=== PATIENT | female | born 1995 | race Hispanic/Latino ===

== ENCOUNTER 2019-12-26 16:47 | Emergency (ER) | payer BC, OTHER ==
[2019-12-26 17:20] LABS: Urine Blood NEGATIVE (NEG); Urine Glucose NEGATIVE (NEG); Urine Protein NEGATIVE (NEG); Urine Specific Gravity 1.025 (1.005-1.030)
--- NOTE | 2019-12-26 18:34 | RAD REPORT ---
EXAM DESCRIPTION: US - Transvaginal OB - 12/26/2019 6:22 pm CLINICAL HISTORY: ABD PAIN, , fall COMPARISON: No comparisons FINDINGS: No myometrial mass identified. A normal shaped oval gestational sac is seen in the fundal portion of the endometrial cavity. No yolk sac or pole seen. Sac size corresponds to a 5 week 2 day age. No hematoma or mass within the endometrial cavity. No blood or fluid in the cul de sac. No ovarian or adnexal abnormality. IMPRESSION: A 5 week 2 day sized gestational sac is seen in the fundal portion of the endometrial ca vity. No yolk sac or pole at this time. This is most likely a very early gestation rather than miscar riage or blighted ovum. No cul de sac or adnexae abnormalities.
--- NOTE | 2019-12-26 18:36 | ER ---
Nurse's Notes [facility] Name: Rachel Valerio Age: 24 yrs Sex: Female : 1995 Arrival Date: 12/26/2019 Time: 16:50 Bed 24 Private MD: Diagnosis: Lower abdominal pain, unspecified;Less than 8 weeks gestation of Presentation: 12/26 17:07 Presenting complaint: Patient states: "I slipped getting out of my truck earlier, and ss now my lower abd hurts." Denies falling to ground. Pt reports she is 6 weeks . Denies vaginal bleeding. Transition of care: patient was not received from another setting of care. Onset of symptoms was December 26, 2019. Risk Assessment: Do you want to hurt yourself or someone else? Patient reports no desire to harm self or others. Initial Sepsis Screen: Does the patient meet any 2 criteria? No. Patient's initial sepsis screen is negative. Does the patient have a suspected source of infection? No. Patient's initial sepsis screen is negative. Care prior to arrival: None. 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 - Coronavirus screen:: The patient has NOT traveled to [place], [place], or [place] in the past 14 days. Proceed with normal triage process as indicated. - Social history:: Smoking status: Patient denies any tobacco usage or history of. - Ebola Screening: : Patient denies exposure to infectious person Patient denies travel to an Ebola-affected area in the 21 days before illness onset. Screenin:26 Abuse screen: Denies threats or abuse. Nutritional screening: No deficits noted. vc Tuberculosis screening: No symptoms or risk factors identified. Fall Risk None identified. Assessment: 17:31 General: Appears in no apparent distress. Behavior is cooperative, anxious, crying. vc Pain: Complains of pain in left lower quadrant and right lower quadrant. Pain: Pain does not radiate. Quality of pain is described as sharp. Neuro: Level of Consciousness is awake, alert, obeys commands, Oriented to person, place, time, situation. Cardiovascular: Capillary refill < 3 seconds Patient's skin is warm and dry. Respiratory: Respiratory effort is even, unlabored. GI: No signs and/or symptoms were reported involving the gastrointestinal system. : No signs and/or symptoms were reported regarding the genitourinary system. EENT: No deficits noted. Derm: Skin temperature is warm. Musculoskeletal: Circulation, motion, and sensation intact. Range of motion: intact in all extremities. 18:12 Reassessment: Patient at ultrasound. vc 18:30 Reassessment: Patient and/or family updated on plan of care and expected duration. Pain vc level reassessed. Patient is alert, oriented x 3, equal unlabored respirations, skin warm/dry/pink. Patient states feeling better. Vital Signs: 17:07 BP 120 / 78; Pulse 94; Resp 16; Temp 97.4(O); Pulse Ox 98% ; Weight 102.06 kg; Height 5 ss ft. 7 in. (170.18 cm); 18:15 BP 133 / 71; Pulse 96; Resp 20; Pulse Ox 100% on R/A; vc 17:07 Body Mass Index 35.24 (102.06 kg, 170.18 cm) ss ED Course: 16:50 Patient arrived in ED. as 16:50 Nicky Singer FNP-C [facility]. kb 16:50 Percy Rosales MD is Attending Physician. kb 17:00 Reina Bagley RN is Primary Nurse. vc 17:07 Arm band placed on right wrist. ss 17:12 Triage completed. ss 17:15 Patient has correct armband on for positive identification. vc 18:23 US Transvaginal Ob In Process Unspecified. EDMS 18:35 No provider procedures requiring assistance completed. Patient did not have IV access vc during this emergency room visit. Administered Medications: No medications were administered Outcome: 18:35 Discharge ordered by . kb 18:36 Condition: good vc 18:36 Discharge instructions given to patient, significant other, Instructed on discharge instructions, follow up and referral plans. Demonstrated understanding of instructions, follow-up care, medications. 18:55 Patient left the ED. vc Signatures: Dispatcher [employer] EDMS Nicky Singer, JAKE-C RECRUITMENT AND OUTREACH ASSISTANT-Radha Dhaliwal Shelby, АНДРЕЙ RN ss Reina Bagley RN RN vc Corrections: (The following items were deleted from the chart) 17:37 17:26 General: Appears in no apparent distress. uncomfortable, Behavior is cooperative, vc anxious, crying, vc 17:37 17:26 Pain: Complains of pain in left lower quadrant and right lower quadrant Pain does vc not radiate. Pain began suddenly, vc 17:37 17:26 EENT: No signs and/or symptoms were reported regarding the EENT system. vc vc : 17:26 Neuro: Level of Consciousness is awake, alert, obeys commands, Oriented to vc person, place, time, vc 17: 17:26 Cardiovascular: Capillary refill < 3 seconds Patient's skin is warm and dry. vc vc 17:37 17:26 Respiratory: Respiratory effort is even, unlabored, vc vc :37 17:26 GI: Abdomen is flat, vc vc :37 17:26 : No signs and/or symptoms were reported regarding the genitourinary system. vc vc :37 17:26 Derm: Skin is intact, is healthy with good turgor, vc vc 17:37 17:26 Musculoskeletal: No signs and/or symptoms reported regarding the musculoskeletal vc system. vc
--- NOTE | 2019-12-26 18:36 | EDPHYS ---
Physician Documentation [facility] Name: Rachel Valerio Age: 24 yrs Sex: Female : 1995 Arrival Date: 12/26/2019 Time: 16:50 Bed 24 Private MD: ED Physician Percy Rosales HPI: 12/26 17:16 This 24 yrs old Female presents to ER via Ambulatory with complaints of Fall kb Injury, Abdominal Pain - 6 wks preg. 17:16 Details of fall: The patient fell from a height. Onset: The symptoms/episode kb began/occurred yesterday. Associated injuries: The patient sustained injury to the abdomen, tenderness. Severity of symptoms: At their worst the symptoms were mild, in the emergency department the symptoms are unchanged. The patient has not experienced similar symptoms in the past. The patient has not recently seen a physician. Pt reports she slid on wet concrete when she was getting out of the truck yesterday. [place] some cramping in the lower abd at the time and it has gotten worse. Reports she is 6 weeks so wants to make sure everything is ok. 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 - Coronavirus screen:: The patient has NOT traveled to [place], [place], or [place] in the past 14 days. Proceed with normal triage process as indicated. - Social history:: Smoking status: Patient denies any tobacco usage or history of. - Ebola Screening: : Patient denies exposure to infectious person Patient denies travel to an Ebola-affected area in the 21 days before illness onset. ROS: 17:16 Constitutional: Negative for fever, chills, and weight loss, ENT: Negative for injury, kb pain, and discharge, Neck: Negative for injury, pain, and swelling, Cardiovascular: Negative for chest pain, palpitations, and edema, Respiratory: Negative for shortness of breath, cough, wheezing, and pleuritic chest pain, Back: Negative for injury and pain, : Negative for injury, bleeding, discharge, and swelling, MS/Extremity: Negative for injury and deformity, Skin: Negative for injury, rash, and discoloration, Neuro: Negative for headache, weakness, numbness, tingling, and seizure. 17:16 Abdomen/GI: Positive for abdominal pain. Exam: 17:16 Constitutional: This is a well developed, well nourished patient who is awake, alert, kb and in no acute distress. Head/Face: Normocephalic, atraumatic. Neck: Trachea midline, no thyromegaly or masses palpated, and no cervical lymphadenopathy. Supple, full range of motion without nuchal rigidity, or vertebral point tenderness. No Meningismus. Chest/axilla: Normal chest wall appearance and motion. Nontender with no deformity. No lesions are appreciated. Cardiovascular: Regular rate and rhythm with a normal S1 and S2. No gallops, murmurs, or rubs. Normal PMI, no JVD. No pulse deficits. Respiratory: Lungs have equal breath sounds bilaterally, clear to auscultation and percussion. No rales, rhonchi or wheezes noted. No increased work of breathing, no retractions or nasal flaring. Back: No spinal tenderness. No costovertebral tenderness. Full range of motion. Skin: Warm, dry with normal turgor. Normal color with no rashes, no lesions, and no evidence of cellulitis. MS/ Extremity: Pulses equal, no cyanosis. Neurovascular intact. Full, normal range of motion. Neuro: Awake and alert, GCS 15, oriented to person, place, time, and situation. Cranial nerves II-XII grossly intact. Motor strength 5/5 in all extremities. Sensory grossly intact. Cerebellar exam normal. Normal gait. 17:16 Abdomen/GI: Inspection: abdomen appears normal, Bowel sounds: normal, in all quadrants, Palpation: soft, in all quadrants, mild abdominal tenderness, in the right lower quadrant and left lower quadrant. Vital Signs: 17:07 BP 120 / 78; Pulse 94; Resp 16; Temp 97.4(O); Pulse Ox 98% ; Weight 102.06 kg; Height 5 ss ft. 7 in. (170.18 cm); 18:15 BP 133 / 71; Pulse 96; Resp 20; Pulse Ox 100% on R/A; vc 17:07 Body Mass Index 35.24 (102.06 kg, 170.18 cm) ss MDM: 17:00 Patient medically screened. kb 17:20 Data reviewed: vital signs, nurses notes. Data interpreted: Pulse oximetry: on room air kb is 98 %. Interpretation: normal. 18:32 Counseling: I had a detailed discussion with the patient and/or guardian regarding: the kb historical points, exam findings, and any diagnostic results supporting the discharge/admit diagnosis, lab results, radiology results, the need for outpatient follow up, an OB/Gyne specialist, to return to the emergency department if symptoms worsen or persist or if there are any questions or concerns that arise at home. 12/26 17:15 Order name: Urine Dipstick--Ancillary (enter results); Complete Time: 17:20 eb 12/26 17:15 Order name: Urine --Ancillary (enter results); Complete Time: 17:20 eb 12/26 17:10 Order name: Urine Dipstick-Ancillary (obtain specimen); Complete Time: 17:15 kb 12/26 17:10 Order name: Urine Test (obtain specimen); Complete Time: 17:15 kb 12/26 17:10 Order name: US Transvaginal Ob kb Administered Medications: No medications were administered Disposition: 18:57 Co-signature as Attending Physician, Percy Rosales MD. rn Disposition: 12/26/19 18:35 Discharged to Home. Impression: Lower abdominal pain, unspecified, Less than 8 weeks gestation of . - Condition is Stable. - Discharge Instructions: First Trimester of , [id number], Abdominal Pain During , [id number]. - Medication Reconciliation Form, Thank You Letter, Antibiotic Education, Prescription Opioid Use form. - Follow up: Emergency Department; When: As needed; Reason: Worsening of condition. Follow up: Private Physician; When: 2 - 3 days; Reason: Recheck today's complaints, Continuance of care, Re-evaluation by your physician. Signatures: Dispatcher [employer] EDOH Nicky Singer, ACID TENDERIsabelleC Percy Galindo MD MD rn Smirch, Shelby, RN RN ss Reina Bagley RN RN vc Corrections: (The following items were deleted from the chart) 18:55 18:35 12/26/2019 18:35 Discharged to Home. Impression: Lower abdominal pain, vc unspecified; Less than 8 weeks gestation of . Condition is Stable. Forms are Medication Reconciliation Form, Thank You Letter, Antibiotic Education, Prescription Opioid Use. Follow up: Emergency Department; When: As needed; Reason: Worsening of condition. Follow up: Private Physician; When: 2 - 3 days; Reason: Recheck today's complaints, Continuance of care, Re-evaluation by your physician. kb
[2019-12-26 21:40] VITALS: TEMP 97.4
[2019-12-26 21:41] VITALS: BP 133/71; O2SAT 100
== END 2019-12-26 18:55 | disposition home or self-care (01) ==
LOC: ER 16:47
DX: O26.891 Other specified pregnancy related conditions, first trimester (principal); R10.30 Lower abdominal pain, unspecified
CPT/HCPCS: 76817; 81003; 81025; 99283

== ENCOUNTER 2020-01-11 09:27 | Emergency (ER) | payer OTHER ==
--- NOTE | 2020-01-11 10:48 | ER ---
Nurse's Notes [facility] Name: Rachel Valerio Age: 24 yrs Sex: Female : 1995 Arrival Date: 01/11/2020 Time: 09:29 Bed 14 Private MD: Diagnosis: Acute upper respiratory infection, unspecified; related conditions, unspecified, first trimester Presentation: 01/11 09:51 Presenting complaint: Patient states: body aches, sore throat, cough and R ear pain ss that began yesterday evening. Pt was instructed to come to ED because she is 8 weeks . Transition of care: patient was not received from another setting of care. Onset of symptoms was January 10, 2020. Risk Assessment: Do you want to hurt yourself or someone else? Patient reports no desire to harm self or others. Initial Sepsis Screen: Does the patient meet any 2 criteria? No. Patient's initial sepsis screen is negative. Does the patient have a suspected source of infection? No. Patient's initial sepsis screen is negative. Care prior to arrival: None. 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 - Coronavirus screen:: The patient has NOT traveled to [place] in the past 14 days. Proceed with normal triage process as indicated. - Social history:: Smoking status: Patient denies any tobacco usage or history of. - Family history:: not pertinent. - Ebola Screening: : Patient denies exposure to infectious person Patient denies travel to an Ebola-affected area in the 21 days before illness onset. Screenin:20 Abuse screen: Denies threats or abuse. Denies injuries from another. Nutritional aj1 screening: No deficits noted. Tuberculosis screening: No symptoms or risk factors identified. 11:10 Fall Risk None identified. aj1 Assessment: 10:20 General: Appears in no apparent distress. comfortable, Behavior is calm, cooperative, aj1 appropriate for age. Pain: Complains of pain in generalized body aches, sore throat, ear pain. Neuro: Level of Consciousness is awake, alert, obeys commands, Oriented to person, place, time, situation. Cardiovascular: Patient's skin is warm and dry. Respiratory: Reports cough that is persistent Airway is patent Respiratory effort is even, unlabored, Respiratory pattern is regular, symmetrical. GI: No signs and/or symptoms were reported involving the gastrointestinal system. : No signs and/or symptoms were reported regarding the genitourinary system. EENT: Reports sore throat, ear pain. Derm: No signs and/or symptoms reported regarding the dermatologic system. Skin is pink, warm \T\ dry. normal. Musculoskeletal: No signs and/or symptoms reported regarding the musculoskeletal system. Circulation, motion, and sensation intact. 11:09 Reassessment: Patient appears in no apparent distress at this time. No changes from aj1 previously documented assessment. Patient and/or family updated on plan of care and expected duration. Pain level reassessed. Patient is alert, oriented x 3, equal unlabored respirations, skin warm/dry/pink. Vital Signs: 09:59 BP 103 / 63; Pulse 86; Resp 17; Temp 98.2(TE); Pulse Ox 97% on R/A; Height 5 ft. 7 in. ss (170.18 cm); Pain 6/10; ED Course: 09:29 Patient arrived in ED. rg4 09:49 Raj Price MD is Attending Physician. [facility] 09:54 Triage completed. ss 09:59 Arm band placed on right wrist. ss 10:01 Influenza Screen (a \T\ B) Sent. tw2 10:20 Ivett Melvin, RN is Primary Nurse. aj1 10:20 Patient has correct armband on for positive identification. Bed in low position. Call aj1 light in reach. Side rails up X 1. 10:20 No provider procedures requiring assistance completed. aj1 11:09 Patient did not have IV access during this emergency room visit. aj1 Administered Medications: No medications were administered Outcome: 10:47 Discharge ordered by . mishel 11:10 Discharged to home ambulatory. aj1 11:10 Condition: good 11:10 Discharge instructions given to patient, Instructed on discharge instructions, follow up and referral plans. medication usage, Demonstrated understanding of instructions, follow-up care, medications, Prescriptions given X 1. 11:11 Patient left the ED. aj1 Signatures: Ivett Melvin, RN RN aj1 Raj Price MD MD cha Smirch, Shelby RN RN ss Floresita Garcia RN RN tw2 Charley Rodriguez 4
--- NOTE | 2020-01-11 10:48 | EDPHYS ---
Physician Documentation [facility] Name: Rachel Valerio Age: 24 yrs Sex: Female : 1995 Arrival Date: 01/11/2020 Time: 09:29 Bed 14 Private MD: ED Physician Raj Price HPI: 01/11 10:29 This 24 yrs old Female presents to ER via Ambulatory with complaints of Flu mishel Symptoms. 10:29 The patient or guardian reports cough. Onset: The symptoms/episode began/occurred 1 mishel day(s) ago. Modifying factors: The symptoms are alleviated by nothing. the symptoms are aggravated by nothing. Associated signs and symptoms: Pertinent positives: rhinorrhea, sore throat. Severity of symptoms: At their worst the symptoms were mild in the emergency department the symptoms are unchanged. The patient has not experienced similar symptoms in the past. 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 - Coronavirus screen:: The patient has NOT traveled to [place] in the past 14 days. Proceed with normal triage process as indicated. - Social history:: Smoking status: Patient denies any tobacco usage or history of. - Family history:: not pertinent. - Ebola Screening: : Patient denies exposure to infectious person Patient denies travel to an Ebola-affected area in the 21 days before illness onset. ROS: 10:29 Constitutional: Negative for fever, chills, and weight loss, Eyes: Negative for injury, mishel pain, redness, and discharge, ENT: Negative for injury, pain, and discharge, Neck: Negative for injury, pain, and swelling, Cardiovascular: Negative for chest pain, palpitations, and edema, Abdomen/GI: Negative for abdominal pain, nausea, vomiting, diarrhea, and constipation, Back: Negative for injury and pain, : Negative for injury, bleeding, discharge, and swelling, MS/Extremity: Negative for injury and deformity, Skin: Negative for injury, rash, and discoloration, Neuro: Negative for headache, weakness, numbness, tingling, and seizure, Psych: Negative for depression, anxiety, suicide ideation, homicidal ideation, and hallucinations, Allergy/Immunology: Negative for hives, rash, and allergies, Endocrine: Negative for neck swelling, polydipsia, polyuria, polyphagia, and marked weight changes, Hematologic/Lymphatic: Negative for swollen nodes, abnormal bleeding, and unusual bruising. 10:29 Respiratory: Positive for cough. Exam: 10:29 Constitutional: This is a well developed, well nourished patient who is awake, alert, mishel and in no acute distress. Head/Face: Normocephalic, atraumatic. Eyes: Pupils equal round and reactive to light, extra-ocular motions intact. Lids and lashes normal. Conjunctiva and sclera are non-icteric and not injected. Cornea within normal limits. Periorbital areas with no swelling, redness, or edema. ENT: Nares patent. No nasal discharge, no septal abnormalities noted. Tympanic membranes are normal and external auditory canals are clear. Oropharynx with no redness, swelling, or masses, exudates, or evidence of obstruction, uvula midline. Mucous membranes moist. Neck: Trachea midline, no thyromegaly or masses palpated, and no cervical lymphadenopathy. Supple, full range of motion without nuchal rigidity, or vertebral point tenderness. No Meningismus. Chest/axilla: Normal chest wall appearance and motion. Nontender with no deformity. No lesions are appreciated. Cardiovascular: Regular rate and rhythm with a normal S1 and S2. No gallops, murmurs, or rubs. Normal PMI, no JVD. No pulse deficits. Abdomen/GI: Soft, non-tender, with normal bowel sounds. No distension or tympany. No guarding or rebound. No evidence of tenderness throughout. Back: No spinal tenderness. No costovertebral tenderness. Full range of motion. Female : Normal external genitalia. Skin: Warm, dry with normal turgor. Normal color with no rashes, no lesions, and no evidence of cellulitis. MS/ Extremity: Pulses equal, no cyanosis. Neurovascular intact. Full, normal range of motion. Neuro: Awake and alert, GCS 15, oriented to person, place, time, and situation. Cranial nerves II-XII grossly intact. Motor strength 5/5 in all extremities. Sensory grossly intact. Cerebellar exam normal. Normal gait. 10:29 Respiratory: the patient does not display signs of respiratory distress, Respirations: normal, Breath sounds: are clear throughout, no bronchial sounds, no decreased breath sounds, no rales, rhonchi, no stridor, no wheezing. Vital Signs: 09:59 BP 103 / 63; Pulse 86; Resp 17; Temp 98.2(TE); Pulse Ox 97% on R/A; Height 5 ft. 7 in. ss (170.18 cm); Pain 6/10; MDM: 09:49 Patient medically screened. [facility] 10:31 Data reviewed: vital signs, nurses notes, lab test result(s), Flu:. [facility] 01/11 09:54 Order name: Influenza Screen (a \T\ B) [facility] 01/11 10:24 Order name: Influenza Screen (A ; Complete Time: 10:46 [facility] 01/11 10:47 Order name: Urine Dipstick-Ancillary (obtain specimen); Complete Time: 11:03 [facility] 01/11 10:47 Order name: Urine Test (obtain specimen); Complete Time: 11:03 [facility] 01/11 11:02 Order name: Urine Dipstick--Ancillary (enter results) eb 01/11 11:02 Order name: Urine --Ancillary (enter results) eb Administered Medications: No medications were administered Disposition: 01/11/20 10:47 Discharged to Home. Impression: Acute upper respiratory infection, unspecified, related conditions, unspecified, first trimester. - Condition is Stable. - Discharge Instructions: Upper Respiratory Infection, Adult, Cool Mist Vaporizer, First Trimester of , [id number], First Trimester of , Cough, Adult. - Prescriptions for Vitamin 27- 0.8 mg Oral Tablet - take 1 tablet by ORAL route once daily; 30 tablet. Tamiflu 75 mg Oral Capsule - take 1 tablet by ORAL route every 12 hours for 5 days; 10 tablet. - Medication Reconciliation Form, Thank You Letter, Antibiotic Education, Prescription Opioid Use form. - Follow up: Private Physician; When: 2 - 3 days; Reason: Recheck today's complaints, Continuance of care, Re-evaluation by your physician. - Problem is new. - Symptoms have improved. Signatures: Dispatcher [facility] Ivett Melvin RN RN aj1 Raj Price MD MD cha Smirch, Shelby, RN RN ss Corrections: (The following items were deleted from the chart) 11:11 10:47 01/11/2020 10:47 Discharged to Home. Impression: Acute upper respiratory aj1 infection, unspecified; related conditions, unspecified, first trimester. Condition is Stable. Discharge Instructions: Upper Respiratory Infection, Adult, Cool Mist Vaporizer, First Trimester of , Gnpy-qk-Sluc, First Trimester of , Cough, Adult. Prescriptions for Vitamin 27-0.8 mg Oral Tablet - take 1 tablet by ORAL route once daily; 30 tablet, Tamiflu 75 mg Oral Capsule - take 1 tablet by ORAL route every 12 hours for 5 days; 10 tablet. and Forms are Medication Reconciliation Form, Thank You Letter, Antibiotic Education, Prescription Opioid Use. Follow up: Private Physician; When: 2 - 3 days; Reason: Recheck today's complaints, Continuance of care, Re-evaluation by your physician. Problem is new. Symptoms have improved. mishel
[2020-01-11 11:17] LABS: Urine Blood TRACE (NEG); Urine Glucose NEGATIVE (NEG); Urine Protein NEGATIVE (NEG); Urine Specific Gravity 1.015 (1.005-1.030)
== END 2020-01-11 11:11 | disposition home or self-care (01) ==
LOC: ER 09:27
DX: O99.511 Diseases of the respiratory system complicating pregnancy, first trimester (principal); J06.9 Acute upper respiratory infection, unspecified
CPT/HCPCS: 81003; 81025; 87804; 99283

== ENCOUNTER 2020-04-04 10:36 | Emergency (ER) | payer OTHER ==
[2020-04-04] MEDS ORDERED: NA CHLORIDE 0.9% 1,000 ML ONE (11:22)
[2020-04-04 11:23] LABS: Urine Blood NEGATIVE (NEG); Urine Glucose NEGATIVE (NEG); Urine Protein NEGATIVE (NEG); Urine pH 6.5 (5.0-7.0)
[2020-04-04 11:41] LABS: Absolute Lymphocytes (CBC) 2.1 K/uL (0.7-4.9); Basophils % 0.2 % (0-1.3); Hematocrit 34.6 % (36.0-45.0); Lymphocytes % 22.3 % (15.3-44.8); MPV 8.9 fL (7.6-11.3); RBC Red Blood Cell Count 4.13 M/uL (3.86-4.86)
[2020-04-04 12:13] LABS: BUN Blood Urea Nitrogen 6 mg/dL (7-18); Bicarbonate 22 mmol/L (21-32); Glucose Level 92 mg/dL (74-106); HCG, Quantitative 22391 mIU/mL (1-3); Potassium 3.7 mmol/L (3.5-5.1); Sodium Level 137 mmol/L (136-145)
[2020-04-04] MEDS ORDERED: CEFTRIAXONE/SWI 1gm 1 GM/10 ML SYR ONE (12:25)
--- NOTE | 2020-04-04 12:27 | RAD REPORT ---
EXAM DESCRIPTION: US - OB Limited - 04/04/2020 12:11 pm CLINICAL HISTORY: ABD CRAMPING, COMPARISON: Transvaginal OB dated 12/26/2019 FINDINGS: A single breech presenting gestation is identified. Heart rate normal. On limited assessme nt no gross anatomic abnormality seen. measurements are as follows: BPD:4.32 Centimeters 19 weeks 0 days HC:16.27 Centimeters 19 weeks 0 days AC:13.69 Centimeters 19 weeks 0 days HL:2.95 Centimeters 19 weeks 4 days FL:2.84 Centimeters 18 weeks 5 days The estimated gestational age (EGA) is 19 weeks 0 days with an CLAIRE of 08/29/2020. ratios are n ormal or within acceptable limits. The placenta is grade 0, anterior in location. No low-lying or vi centa previa. The amniotic fluid volume is normal. CHRISTINE is normal at 13.78 cm. Cervix is long and jessika sed measuring 3.9 cm in length. No maternal adnexa abnormality. IMPRESSION: 1. Single, breech gestation with an EGA of 19 weeks 0 days and an CLAIRE of the 08/29/2020. 2. No abnormalities are identifiable. ratios are normal or within acceptable limits. 3. Grade 0, anterior placenta with no low-lying or placenta previa. No abruption or marginal hematoma . 4. Amniotic fluid volume is normal.
--- NOTE | 2020-04-04 12:34 | EDPHYS ---
Physician Documentation [facility] Name: Rachel Valerio Age: 24 yrs Sex: Female : 1995 Arrival Date: 04/04/2020 Time: 10:40 Bed 20 Private MD: None, None ED Physician Raj Price HPI: 04/04 11:25 This 24 yrs old Female presents to ER via Ambulatory with complaints of 19wks mishel , Abdominal Pain. 11:25 The patient presents with abdominal pain in the lower abdomen, in the left lower mishel quadrant, abdominal distention in the upper abdomen, in the lower abdomen. Onset: The symptoms/episode began/occurred 2 day(s) ago. The patient presents to the emergency department with possible uterine contractions, abdominal pain, that started yesterday. The estimated gestational age is 19 weeks. course: care: at a clinic. Previous pregnancies: the patient has never been . Associated signs and symptoms: The patient has no apparent associated signs or symptoms. The symptoms do not radiate. Associated signs and symptoms: none. 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 - Social history:: Smoking status: Patient denies any tobacco usage or history of. - Family history:: not pertinent. ROS: 11:25 Constitutional: Negative for fever, chills, and weight loss, Eyes: Negative for injury, mishel pain, redness, and discharge, ENT: Negative for injury, pain, and discharge, Neck: Negative for injury, pain, and swelling, Cardiovascular: Negative for chest pain, palpitations, and edema, Respiratory: Negative for shortness of breath, cough, wheezing, and pleuritic chest pain, Back: Negative for injury and pain, : Negative for injury, bleeding, discharge, and swelling, MS/Extremity: Negative for injury and deformity, Skin: Negative for injury, rash, and discoloration, Neuro: Negative for headache, weakness, numbness, tingling, and seizure, Psych: Negative for depression, anxiety, suicide ideation, homicidal ideation, and hallucinations, Allergy/Immunology: Negative for hives, rash, and allergies, Endocrine: Negative for neck swelling, polydipsia, polyuria, polyphagia, and marked weight changes, Hematologic/Lymphatic: Negative for swollen nodes, abnormal bleeding, and unusual bruising. 11:25 Abdomen/GI: Positive for abdominal pain, of the left lower quadrant. Exam: 11:25 Constitutional: This is a well developed, well nourished patient who is awake, alert, mishel and in no acute distress. Head/Face: Normocephalic, atraumatic. Eyes: Pupils equal round and reactive to light, extra-ocular motions intact. Lids and lashes normal. Conjunctiva and sclera are non-icteric and not injected. Cornea within normal limits. Periorbital areas with no swelling, redness, or edema. ENT: Nares patent. No nasal discharge, no septal abnormalities noted. Tympanic membranes are normal and external auditory canals are clear. Oropharynx with no redness, swelling, or masses, exudates, or evidence of obstruction, uvula midline. Mucous membranes moist. Neck: Trachea midline, no thyromegaly or masses palpated, and no cervical lymphadenopathy. Supple, full range of motion without nuchal rigidity, or vertebral point tenderness. No Meningismus. Chest/axilla: Normal chest wall appearance and motion. Nontender with no deformity. No lesions are appreciated. Cardiovascular: Regular rate and rhythm with a normal S1 and S2. No gallops, murmurs, or rubs. Normal PMI, no JVD. No pulse deficits. Respiratory: Lungs have equal breath sounds bilaterally, clear to auscultation and percussion. No rales, rhonchi or wheezes noted. No increased work of breathing, no retractions or nasal flaring. Back: No spinal tenderness. No costovertebral tenderness. Full range of motion. Female : Normal external genitalia. Skin: Warm, dry with normal turgor. Normal color with no rashes, no lesions, and no evidence of cellulitis. MS/ Extremity: Pulses equal, no cyanosis. Neurovascular intact. Full, normal range of motion. Neuro: Awake and alert, GCS 15, oriented to person, place, time, and situation. Cranial nerves II-XII grossly intact. Motor strength 5/5 in all extremities. Sensory grossly intact. Cerebellar exam normal. Normal gait. 11:25 Abdomen/GI: Inspection: gravid appearance, Bowel sounds: normal, Palpation: mild abdominal tenderness, in the left lower quadrant, Liver: no appreciated palpable abnormalities, Hernia: not appreciated. Vital Signs: 10:56 BP 111 / 72; Pulse 83; Resp 15; Temp 98.8(TE); Pulse Ox 97% on R/A; Weight 104.33 kg; ss Height 5 ft. 7 in. (170.18 cm); Pain 6/10; 10:56 Body Mass Index 36.02 (104.33 kg, 170.18 cm) ss MDM: 11:[address] [facility] 11:27 Data reviewed: vital signs, nurses notes, lab test result(s). [facility] 04/04 11:02 Order name: Quantitative Hcg; Complete Time: 12:32 [facility] 04/04 11:02 Order name: Abo/rh Typing; Complete Time: 12:32 [facility] 04/04 11:02 Order name: Basic Metabolic Panel; Complete Time: 12:32 [facility] 04/04 11:02 Order name: CBC with Diff; Complete Time: 12:32 [facility] 04/04 11:02 Order name: Urine Culture [facility] 04/04 11:20 Order name: Urine Dipstick--Ancillary (enter results) [facility] 04/04 11:02 Order name: Urine Test (obtain specimen); Complete Time: 11:14 [facility] 04/04 11:02 Order name: IV Saline Lock; Complete Time: 11:31 [facility] 04/04 11:02 Order name: Labs collected and sent; Complete Time: 11:31 [facility] 04/04 11:02 Order name: NPO; Complete Time: 11:14 [facility] 04/04 11:02 Order name: US OB Limited; Complete Time: 12:32 [facility] 04/04 11:20 Order name: Urine --Ancillary (enter results) [facility] 04/04 11:02 Order name: Urine Dipstick-Ancillary (obtain specimen); Complete Time: 11:14 [facility] Administered Medications: 11:20 Drug: NS 0.9% 1000 ml Route: IV; Rate: 1 bolus; Site: left hand; 12:20 Follow up: Response: No adverse reaction; IV Status: Completed infusion 12:20 Drug: Rocephin 1 grams Route: IV; Rate: per protocol; Site: left hand; 13:20 Follow up: Response: No adverse reaction; IV Status: Completed infusion Disposition: 04/04/20 12:33 Discharged to Home. Impression: related conditions, unspecified, second trimester, Urinary tract infection, site not specified, Abdominal tenderness. - Condition is Stable. - Discharge Instructions: Abdominal Pain, Adult, Abdominal Pain During , Urinary Tract Infection, Adult, Urinary Tract Infection, Adult, [id number]-[id number], Abdominal Pain, Adult, Gyaw-ho-Tpcf, Antibiotic Medicine, Adult, and Urinary Tract Infection, Pelvic Rest, Second Trimester of , Vict-uv-Jjei. - Prescriptions for Augmentin 875- 125 mg Oral Tablet - take 1 tablet by ORAL route every 12 hours for 10 days; 20 tablet. Vitamin 27- 0.8 mg Oral Tablet - take 1 tablet by ORAL route once daily; 30 tablet. - Medication Reconciliation Form, Thank You Letter, Antibiotic Education, Prescription Opioid Use form. - Follow up: Private Physician; When: 2 - 3 days; Reason: Recheck today's complaints, Continuance of care, Re-evaluation by your physician. Follow up: Khanh Minor MD; When: 2 - 3 days; Reason: Recheck today's complaints, Continuance of care, Re-evaluation by your physician. - Problem is new. - Symptoms have improved. Signatures: Dispatcher [employer] Raj Godfrey MD MD cha Smirch, Shelby, RN RN Karen Freeman RN RN Corrections: (The following items were deleted from the chart) 13:14 12:33 04/04/2020 12:33 Discharged to Home. Impression: related conditions, unspecified, second trimester; Urinary tract infection, site not specified; Abdominal tenderness. Condition is Stable. Forms are Medication Reconciliation Form, Thank You Letter, Antibiotic Education, Prescription Opioid Use. Follow up: Private Physician; When: 2 - 3 days; Reason: Recheck today's complaints, Continuance of care, Re-evaluation by your physician. Follow up: Khanh Minor; When: 2 - 3 days; Reason: Recheck today's complaints, Continuance of care, Re-evaluation by your physician. Problem is new. Symptoms have improved. mishel
--- NOTE | 2020-04-04 12:34 | ER ---
Nurse's Notes [facility] Name: Rachel Valerio Age: 24 yrs Sex: Female : 1995 Arrival Date: 04/04/2020 Time: 10:40 Bed 20 Private MD: None, None Diagnosis: related conditions, unspecified, second trimester;Urinary tract infection, site not specified;Abdominal tenderness Presentation: 04/04 10:56 Chief complaint: Patient states: LLQ pain x 2 days. Pt is concerned because she is 19 ss weeks . Denies vaginal bleeding. Coronavirus screen: Proceed with normal triage. Patient denies a cough. Patient denies measured and/or subjective temperature greater than 100.4F prior to today's visit. Patient denies travel on a cruise ship or to a country the [facility] currently lists as an affected area. Patient denies contact with known and/or suspected case of COVID-19. Ebola Screen: Patient denies exposure to infectious person. Patient denies travel to an Ebola-affected area in the 21 days before illness onset. Initial Sepsis Screen: Does the patient meet any 2 criteria? No. Patient's initial sepsis screen is negative. Does the patient have a suspected source of infection? No. Patient's initial sepsis screen is negative. Risk Assessment: Do you want to hurt yourself or someone else? Patient reports no desire to harm self or others. Onset of symptoms was April 02, 2020. 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 - Social history:: Smoking status: Patient denies any tobacco usage or history of. - Family history:: not pertinent. Screenin:10 Abuse screen: Denies threats or abuse. Nutritional screening: No deficits noted. Tuberculosis screening: No symptoms or risk factors identified. Fall Risk None identified. Assessment: 11:10 General: Appears in no apparent distress. Behavior is calm, cooperative. Pain: Complains of pain in abdomen Pain does not radiate. Pain currently is 7 out of 10 on a pain scale. Quality of pain is described as crampy, Pain began 2-3 days ago. Neuro: Level of Consciousness is awake, alert, Oriented to person, place, time, situation. Cardiovascular: Heart tones S1 S2 present Capillary refill < 3 seconds Patient's skin is warm and dry. Respiratory: Airway is patent Respiratory effort is even, unlabored, Respiratory pattern is regular, symmetrical. GI: Bowel sounds present X 4 quads. Abdomen is tender to palpation in left lower quadrant. : Reports just finished medication last night for yeast infection. : No signs and/or symptoms were reported regarding the genitourinary system. Denies burning with urination, urinary frequency, vaginal bleeding. EENT: No signs and/or symptoms were reported regarding the EENT system. Derm: No signs and/or symptoms reported regarding the dermatologic system. Vital Signs: 10:56 BP 111 / 72; Pulse 83; Resp 15; Temp 98.8(TE); Pulse Ox 97% on R/A; Weight 104.33 kg; ss Height 5 ft. 7 in. (170.18 cm); Pain 6/10; 10:56 Body Mass Index 36.02 (104.33 kg, 170.18 cm) ED Course: 10:40 Patient arrived in ED. mr 10:40 None, None is Private Physician. mr 10:58 Triage completed. ss 10:59 Arm band placed on right wrist. ss 11:00 Inserted saline lock: 22 gauge in left hand, using aseptic technique. 11:01 Raj Price MD is Attending Physician. [facility] 11:03 Karen Freeman, RN is Primary Nurse. ah 12:00 Patient has correct armband on for positive identification. Bed in low position. Call light in reach. 12:09 US OB Limited In Process Unspecified. EDMS 12:10 No provider procedures requiring assistance completed. ah 12:15 IV discontinued, intact, Pressure dressing applied. 12:25 Ultrasound completed. Patient tolerated well. sg3 12:33 Khanh Minor MD is Referral Physician. mishel Administered Medications: 11:20 Drug: NS 0.9% 1000 ml Route: IV; Rate: 1 bolus; Site: left hand; 12:20 Follow up: Response: No adverse reaction; IV Status: Completed infusion 12:20 Drug: Rocephin 1 grams Route: IV; Rate: per protocol; Site: left hand; 13:20 Follow up: Response: No adverse reaction; IV Status: Completed infusion Outcome: 12:33 Discharge ordered by . [facility] 12:45 Discharged to home ambulatory. 12:45 Condition: good 12:45 Discharge instructions given to patient, Instructed on discharge instructions, follow up and referral plans. medication usage, Demonstrated understanding of instructions, follow-up care, medications, Prescriptions given X 2. 13:14 Patient left the ED. Signatures: Dispatcher [employer] EDMS Raj Price MD MD cha Rivera, Wendy mr Nicci Warren, RN RN Richa Lazaro [facility] Karen Freeman, RN RN
[2020-04-04 13:19] VITALS: BP 111/72; TEMP 98.8; O2SAT 97
== END 2020-04-04 13:14 | disposition home or self-care (01) ==
LOC: ER 10:36
DX: O23.42 Unspecified infection of urinary tract in pregnancy, second trimester (principal); Z3A.19 19 weeks gestation of pregnancy
CPT/HCPCS: 96365; 96361; 87088; 85025; 87086; 80048; 36415; 86900; 81025; 86901; 84702; 81003; 76815; 99284; J0696; J7030

== ENCOUNTER 2020-12-29 16:31 | Emergency (ER) | payer OTHER ==
--- NOTE | 2020-12-29 18:03 | ER ---
Nurse's Notes [facility] Name: Rachel Valerio Age: 25 yrs Sex: Female : 1995 Arrival Date: 12/29/2020 Time: 16:34 Bed 25 Private MD: Diagnosis: Cutaneous abscess of left axilla Presentation: 12/29 19:12 Chief complaint: Patient states: abscess to left axilla X 1 week, not draining. iw Coronavirus screen: At this time, the client does not indicate any symptoms associated with coronavirus-19. Ebola Screen: Patient negative for fever greater than or equal to 101.5 degrees Fahrenheit, and additional compatible Ebola Virus Disease symptoms Patient denies exposure to infectious person. Patient denies travel to an Ebola-affected area in the 21 days before illness onset. No symptoms or risks identified at this time. Initial Sepsis Screen: Does the patient meet any 2 criteria? No. Patient's initial sepsis screen is negative. Does the patient have a suspected source of infection? No. Patient's initial sepsis screen is negative. Risk Assessment: Do you want to hurt yourself or someone else? Patient reports no desire to harm self or others. Onset of symptoms was December 21, 2020. 19:12 Method Of Arrival: Ambulatory iw 19:12 Acuity: JOSHUA 4 iw TRIAL CONSULTANT: 19:14 LMP N/A - Recent iw Historical: - Allergies: 19:14 No Known Allergies; iw - Home Meds: 19:14 None [Active]; iw - PMHx: 19:14 Ovarian cyst; iw - PSHx: 19:14 None; iw - Immunization history:: Adult Immunizations not up to date. - Social history:: Smoking status: Patient denies any tobacco usage or history of. Screenin:13 Abuse screen: Denies threats or abuse. Nutritional screening: No deficits noted. em Tuberculosis screening: No symptoms or risk factors identified. Fall Risk None identified. Assessment: 20:07 General: Appears in no apparent distress. uncomfortable, Behavior is calm, cooperative, em appropriate for age. Pain: Complains of pain in left axilla Pain currently is 7 out of 10 on a pain scale. Neuro: Level of Consciousness is awake, alert, obeys commands, Oriented to person, place, time, situation, Appropriate for age. Cardiovascular: Capillary refill < 3 seconds Patient's skin is warm and dry. Respiratory: Airway is patent Respiratory effort is even, unlabored, Respiratory pattern is regular, symmetrical. Derm: Abscess located on left axilla is dime sized. Musculoskeletal: Capillary refill < 3 seconds, Range of motion: intact in all extremities. Vital Signs: 19:12 BP 109 / 72; Pulse 77; Resp 16; Temp 98.1; Pulse Ox 98% on R/A; Weight 104.33 kg; iw Height 5 ft. 7 in. (170.18 cm); Pain 7/10; 19:12 Body Mass Index 36.02 (104.33 kg, 170.18 cm) iw ED Course: 16:34 Patient arrived in ED. mr 19:14 Triage completed. iw 20:07 Zenon Winkler, RN is Primary Nurse. em 20:08 Nicky Singer FNP-C is PHCP. kb 20:08 Raj Price MD is Attending Physician. kb 20:13 Patient has correct armband on for positive identification. Placed in gown. em 20:13 Arm band placed on. em 21:20 Assist provider with I \T\ D: of an abscess on left axilla Set up I\T\D tray. Performed by jessica YOUNG Wound packed. iodoform gauze, Dressing with 4X4s, tape Patient tolerated well. 21:33 Patient did not have IV access during this emergency room visit. em Administered Medications: 20:16 Drug: [place] 10 mg-325 mg 1 tabs Route: PO; em 20:16 Drug: Bactrim (160 mg-800 mg (DS) 1 tablet Route: PO; em 21:20 Drug: Lidocaine (1 %) 5 mg {Note: administered by MARLENE Saunders.} Route: Infiltration; em Outcome: 18:02 Patient left the ED. iw 21:27 Discharge ordered by . kb 21:33 Discharged to home ambulatory. em 21:33 Condition: good 21:33 Discharge instructions given to patient, Instructed on discharge instructions, follow up and referral plans. medication usage, wound care, Demonstrated understanding of instructions, follow-up care, medications, wound care, Prescriptions given X 1. 21:34 Patient left the ED. zb Signatures: Nicky Singer FNP-C FNP-Wendy Castro, Zenon, RN RN Deborah Adams, RN RN jl Hubbard, Penelope, RN RN matthew
[2020-12-29] MEDS ORDERED: HYDROCODONE/APAP 10/325 TAB ONE (20:31)
[2020-12-29] MEDS ORDERED: LIDOCAINE 1% 20 ML MDV ONE (20:31)
[2020-12-29] MEDS ORDERED: SMZ./TMP. 800/160 MG TABLET ONE (20:31)
--- NOTE | 2020-12-29 21:28 | EDPHYS ---
Physician Documentation [facility] Name: Rachel Valerio Age: 25 yrs Sex: Female : 1995 Arrival Date: 12/29/2020 Time: 16:34 Bed 25 Private MD: RICHARD Physician Raj Price HPI: 12/29 23:02 This 25 yrs old Female presents to ER via Ambulatory with complaints of kb Abscess. 23:02 The patient presents with an abscess of the left axilla. Description: erythematous, kb fluctuant, swollen, warm. Onset: The symptoms/episode began/occurred 1 week(s) ago. Possible cause(s): unknown. Associated signs and symptoms: Pertinent positives: erythema, swelling, Pertinent negatives: discharge, drainage, foreign body sensation, fever, headache, nausea, shortness of breath, vomiting. Modifying factors: the symptoms are alleviated by nothing, the symptoms are aggravated by squeezing the lesion and expressing the contents, touching. Severity of symptoms: At their worst the symptoms were moderate, in the emergency department the symptoms are unchanged. The patient has not experienced similar symptoms in the past. The patient has not recently seen a physician. 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 - Social history:: Smoking status: Patient denies any tobacco usage or history of. ROS: 23:01 Constitutional: Negative for fever, chills, and weight loss, Cardiovascular: Negative kb for chest pain, palpitations, and edema, Respiratory: Negative for shortness of breath, cough, wheezing, and pleuritic chest pain, Abdomen/GI: Negative for abdominal pain, nausea, vomiting, diarrhea, and constipation, MS/Extremity: Negative for injury and deformity, Neuro: Negative for headache, weakness, numbness, tingling, and seizure. 23:01 Skin: Positive for abscess, of the left axilla. Exam: 23:00 Constitutional: This is a well developed, well nourished patient who is awake, alert, kb and in no acute distress. Head/Face: Normocephalic, atraumatic. Chest/axilla: Normal chest wall appearance and motion. Nontender with no deformity. No lesions are appreciated. Cardiovascular: Regular rate and rhythm with a normal S1 and S2. No gallops, murmurs, or rubs. Normal PMI, no JVD. No pulse deficits. Respiratory: Lungs have equal breath sounds bilaterally, clear to auscultation and percussion. No rales, rhonchi or wheezes noted. No increased work of breathing, no retractions or nasal flaring. Abdomen/GI: Soft, non-tender, with normal bowel sounds. No distension or tympany. No guarding or rebound. No evidence of tenderness throughout. MS/ Extremity: Pulses equal, no cyanosis. Neurovascular intact. Full, normal range of motion. Neuro: Awake and alert, GCS 15, oriented to person, place, time, and situation. Cranial nerves II-XII grossly intact. Motor strength 5/5 in all extremities. Sensory grossly intact. Cerebellar exam normal. Normal gait. 23:00 Skin: abscess, that is moderate sized, of the left axilla, with fluctuance, with induration. Vital Signs: 19:12 BP 109 / 72; Pulse 77; Resp 16; Temp 98.1; Pulse Ox 98% on R/A; Weight 104.33 kg; iw Height 5 ft. 7 in. (170.18 cm); Pain 7/10; 19:12 Body Mass Index 36.02 (104.33 kg, 170.18 cm) iw Procedures: 23:00 I \T\ D: Incision and drainage was performed for an abscess of the left axilla. Prepped kb with Betadine, Anesthetized with 2 ml's 1% Lidocaine. Incised with #11 blade. Drained moderate amount purulent fluid. Loculations removed. Abscess cavity explored. Packed with iodoform gauze, Dressing: sterile 4x4 gauze, the patient tolerated the procedure well. MDM: 20:08 Patient medically screened. kb 23:00 Data reviewed: vital signs, nurses notes. Data interpreted: Pulse oximetry: on room air kb is 98 %. Interpretation: normal. Counseling: I had a detailed discussion with the patient and/or guardian regarding: the historical points, exam findings, and any diagnostic results supporting the discharge/admit diagnosis, the need for outpatient follow up, a family practitioner, to return to the emergency department if symptoms worsen or persist or if there are any questions or concerns that arise at home. 12/29 20:14 Order name: I\T\D Setup; Complete Time: 20:17 kb Administered Medications: 20:16 Drug: [place] 10 mg-325 mg 1 tabs Route: PO; em 20:16 Drug: Bactrim (160 mg-800 mg (DS) 1 tablet Route: PO; em 21:20 Drug: Lidocaine (1 %) 5 mg {Note: administered by MARLENE Saunders.} Route: Infiltration; em Disposition: 12/30 06:43 Co-signature as Attending Physician, Raj Price MD I agree with the assessment and mishel plan of care. Disposition: 12/29/20 21:27 Discharged to Home. Impression: Cutaneous abscess of left axilla. - Condition is Stable. - Discharge Instructions: Skin Abscess, [id number], Incision and Drainage, Care After. - Prescriptions for Bactrim DS 800- 160 mg Oral Tablet - take 1 tablet by ORAL route every 12 hours for 10 days; 20 tablet. - Work release form, Medication Reconciliation Form, Thank You Letter, Antibiotic Education, Prescription Opioid Use form. - Follow up: Emergency Department; When: As needed; Reason: Worsening of condition. Follow up: Private Physician; When: 2 - 3 days; Reason: Recheck today's complaints, Continuance of care, Re-evaluation by your physician. Signatures: Nicky Singer, FABRIC INSPECTOR-C FABRIC INSPECTOR-Raj Rios MD MD cha Munoz, Edgar, RN RN Deborah Matos RN RN iw Brown, Zipporah, RN RN zb Corrections: (The following items were deleted from the chart) 12/29 18:02 18:02 12/29/2020 18:02 Patient left the facility Before Triage. Reason stated they are iw leaving due to unknown. iw 19:16 18:02 12/29/2020 18:02 Patient left the facility Before Triage. Reason stated they are iw leaving due to unknown. iw 21:34 21:27 12/29/2020 21:27 Discharged to Home. Impression: Cutaneous abscess of left zb axilla. Condition is Stable. Forms are Medication Reconciliation Form, Thank You Letter, Antibiotic Education, Prescription Opioid Use. Follow up: Emergency Department; When: As needed; Reason: Worsening of condition. Follow up: Private Physician; When: 2 - 3 days; Reason: Recheck today's complaints, Continuance of care, Re-evaluation by your physician. kb
[2020-12-29 21:45] VITALS: BP 109/72; TEMP 98.1; O2SAT 98
== END 2020-12-29 21:34 | disposition home or self-care (01) ==
LOC: ER 16:31
PROC: 0H9CXZZ Drainage of Left Upper Arm Skin, External Approach (ICD-10-PCS; principal; 2020-12-29)
DX: L02.412 Cutaneous abscess of left axilla (principal)
CPT/HCPCS: 99283

== ENCOUNTER 2021-05-28 09:33 | Emergency (ER) | payer OTHER ==
--- NOTE | 2021-05-28 09:54 | ER ---
Nurse's Notes [facility] Name: Rachel Valerio Age: 25 yrs Sex: Female : 1995 Arrival Date: 05/28/2021 Time: 09:37 Bed 14 Private MD: Diagnosis: Acute serous otitis media, left ear Presentation: 05/28 09:45 Chief complaint: Patient states: L earache since yesterday. R ear starting to have pain ll1 also. No fever. Coronavirus screen: Client denies travel out of the [place] in the last 14 days. At this time, the client does not indicate any symptoms associated with coronavirus-19. Ebola Screen: Patient denies travel to an Ebola-affected area in the 21 days before illness onset. Initial Sepsis Screen: Does the patient meet any 2 criteria? No. Patient's initial sepsis screen is negative. Does the patient have a suspected source of infection? Yes: Other: ear infection. Risk Assessment: Do you want to hurt yourself or someone else? Patient reports no desire to harm self or others. Onset of symptoms was May 27, 2021. 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 - Social history:: Smoking status: Patient denies any tobacco usage or history of. Screenin:47 Abuse screen: Denies threats or abuse. Nutritional screening: No deficits noted. ll1 Tuberculosis screening: No symptoms or risk factors identified. Fall Risk Total [place] Fall Scale indicates No Risk (0-24 pts). Assessment: 09:47 General: Appears in no apparent distress. Behavior is calm, cooperative, appropriate ll1 for age. Pain: Complains of pain in L ear Quality of pain is described as aching, Pain began 1 day ago. Neuro: No deficits noted. Cardiovascular: No deficits noted. Respiratory: No deficits noted. EENT: Ear canal clear on right ear and left ear Reports pain in Both ears, worse on L. 10:00 Reassessment: No changes from previously documented assessment. Patient and/or family ll1 updated on plan of care and expected duration. Pain level reassessed. Patient is alert, oriented x 3, equal unlabored respirations, skin warm/dry/pink. Vital Signs: 09:45 BP 117 / 81; Pulse 86; Resp 17; Temp 98.1; Pulse Ox 95% on R/A; Weight 104.33 kg; ll1 Height 5 ft. 7 in. (170.18 cm); Pain 8/10; 10:00 BP 114 / 75; Pulse 89; Resp 17; Pulse Ox 97% on R/A; ll1 09:45 Body Mass Index 36.02 (104.33 kg, 170.18 cm) 1 ED Course: 09:37 Patient arrived in ED. mr 09:43 Jarret Coronel PA is PHCP. [facility] 09:43 Marcos Metzger MD is Attending Physician. [facility] 09:44 Chava Guzman, АНДРЕЙ is Primary Nurse. 1 09:44 Arm band placed on Patient placed in an exam room, on a stretcher. ll1 09:46 Triage completed. ll1 09:48 Patient has correct armband on for positive identification. Bed in low position. Call 1 light in reach. Side rails up X 1. 10:02 No provider procedures requiring assistance completed. Patient did not have IV access ll1 during this emergency room visit. Administered Medications: No medications were administered Outcome: 09:54 Discharge ordered by . [facility] 10:02 Patient left the ED. 1 10:02 Discharged to home ambulatory. 1 10:02 Condition: stable 10:02 Discharge instructions given to patient, Instructed on discharge instructions, follow up and referral plans. medication usage, Demonstrated understanding of instructions, follow-up care, medications, Prescriptions given X 1. Signatures: Jarret Coronel PA PA jmm AllenWendy mr Chava Guzman, RN RN 1
--- NOTE | 2021-05-28 09:55 | EDPHYS ---
Physician Documentation [facility] Name: Rachel Valerio Age: 25 yrs Sex: Female : 1995 Arrival Date: 05/28/2021 Time: 09:37 Bed 14 Private MD: ED Physician Marcos Metzger HPI: 05/28 09:52 This 25 yrs old Female presents to ER via Ambulatory with complaints of Ear jmm Pain. 09:52 The patient presents with pain. Onset: The symptoms/episode began/occurred gradually, 3 jmm day(s) ago. Modifying factors: The symptoms are alleviated by nothing, the symptoms are aggravated by nothing. Associated signs and symptoms: Pertinent negatives: cough, fever, shortness of breath, sore throat, vertigo, vomiting. It is unknown whether or not the patient has had similar symptoms in the past. 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 - Social history:: Smoking status: Patient denies any tobacco usage or history of. ROS: 09:52 Constitutional: Negative for fever, chills, and weight loss, Cardiovascular: Negative jmm for chest pain, palpitations, and edema, Respiratory: Negative for shortness of breath, cough, wheezing, and pleuritic chest pain. 09:52 ENT: Positive for ear pain. 09:52 All other systems are negative. Exam: 09:52 Constitutional: This is a well developed, well nourished patient who is awake, alert, jmm and in no acute distress. Head/Face: atraumatic. Eyes: EOMI, no conjunctival erythema appreciated 09:52 Neck: Trachea midline, Supple Chest/axilla: Normal chest wall appearance and motion. Cardiovascular: Regular rate and rhythm. No edema appreciated Respiratory: Normal respirations, no respiratory distress appreciated Abdomen/GI: Non distended, soft Back: Normal ROM Skin: General appearance color normal MS/ Extremity: Moves all extremities, no obvious deformities appreciated, no edema noted to the lower extremities Neuro: Awake and alert, normal gait Psych: Behavior is normal, Mood is normal, Patient is cooperative and pleasant 09:52 ENT: TM's: erythema, that is moderate, bilaterally. Vital Signs: 09:45 BP 117 / 81; Pulse 86; Resp 17; Temp 98.1; Pulse Ox 95% on R/A; Weight 104.33 kg; ll1 Height 5 ft. 7 in. (170.18 cm); Pain 8/10; 10:00 BP 114 / 75; Pulse 89; Resp 17; Pulse Ox 97% on R/A; ll1 09:45 Body Mass Index 36.02 (104.33 kg, 170.18 cm) ll1 MDM: 09:52 Patient medically screened. [facility] 09:53 Data reviewed: vital signs, nurses notes. Counseling: I had a detailed discussion with [facility] the patient and/or guardian regarding: the historical points, exam findings, and any diagnostic results supporting the discharge/admit diagnosis, the need for outpatient follow up, to return to the emergency department if symptoms worsen or persist or if there are any questions or concerns that arise at home. ED course: Patient is alert and non toxic in appearance in the ED. Patient advised to follow up with pcp and otherwise given strict return precautions. Patient understood and agrees with the plan of care.. Administered Medications: No medications were administered Disposition Summary: 05/28/21 09:54 Discharge Ordered Location: Home [facility] Condition: Stable [facility] Diagnosis - Acute serous otitis media, left ear [facility] Followup: [facility] - With: Private Physician - When: 2 - 3 days - Reason: Recheck today's complaints, Continuance of care, Re-evaluation by your physician Discharge Instructions: - Discharge Summary Sheet [facility] - Otitis Media, Adult [facility] Forms: - Medication Reconciliation Form [facility] - Thank You Letter [facility] - Antibiotic Education [facility] - Prescription Opioid Use [facility] Prescriptions: - Augmentin 875-125 mg Oral Tablet - take 1 tablet by ORAL route every 12 hours for 10 days; 20 tablet; Refills: 0, [facility] Product Selection Permitted Addendum: 05/31/2021 13:28 Co-signature as Attending Physician, Marcos Metzger MD I agree with the assessment and k plan of care. Signatures: Marcos Metzger MD MD kdr Mickail, Joel, PA PA jmm Lewis, Lynsay RN RN ll1
[2021-05-28 10:08] VITALS: BP 117/81; TEMP 98.1; O2SAT 95
== END 2021-05-28 10:02 | disposition home or self-care (01) ==
LOC: ER 09:33
DX: H65.02 Acute serous otitis media, left ear (principal)
CPT/HCPCS: 99282

== ENCOUNTER 2021-05-29 21:43 | Emergency (ER) | payer OTHER ==
--- NOTE | 2021-05-29 22:49 | ER ---
Nurse's Notes [facility] Name: Rachel Valerio Age: 25 yrs Sex: Female : 1995 Arrival Date: 05/29/2021 Time: 21:46 Bed 6 Private MD: Diagnosis: Unspecified otitis externa, left ear;Unspecified otitis externa, right ear Presentation: 05/29 22:02 Chief complaint: Patient states: was here yesterday for left ear pain and was given em antibiotic, reports right ear is now hurting, denies fever. Coronavirus screen: Client denies travel out of the [place] in the last 14 days. Ebola Screen: Patient negative for fever greater than or equal to 101.5 degrees Fahrenheit, and additional compatible Ebola Virus Disease symptoms Patient denies exposure to infectious person. Patient denies travel to an Ebola-affected area in the 21 days before illness onset. No symptoms or risks identified at this time. Initial Sepsis Screen: Does the patient meet any 2 criteria? No. Patient's initial sepsis screen is negative. Does the patient have a suspected source of infection? No. Patient's initial sepsis screen is negative. Risk Assessment: Do you want to hurt yourself or someone else? Patient reports no desire to harm self or others. Onset of symptoms was May 29, 2021. 22:02 Method Of Arrival: Ambulatory em 22:02 Acuity: JOSHUA 4 em Triage Assessment: 23:27 General: Appears uncomfortable, obese, well groomed, well developed, well nourished, bs2 Behavior is calm, cooperative, appropriate for age. 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 - Social history:: Smoking status: Patient denies any tobacco usage or history of. Screenin:25 Abuse screen: Denies threats or abuse. Denies injuries from another. Nutritional bs2 screening: No deficits noted. Tuberculosis screening: No symptoms or risk factors identified. Fall Risk None identified. Assessment: 23:25 Pain: Complains of pain in right ear and left ear. EENT: Tympanic membrane reddened on bs2 left ear and right ear Reports pain in left ear and right ear Pain is 8 out of 10 on a pain scale. Vital Signs: 22:02 BP 115 / 72; Pulse 82; Resp 18; Temp 98.5; Pulse Ox 98% on R/A; Weight 104.33 kg; em Height 5 ft. 7 in. (170.18 cm); 22:02 Body Mass Index 36.02 (104.33 kg, 170.18 cm) em ED Course: 21:46 Patient arrived in ED. ag3 22:03 Triage completed. em 22:03 Arm band placed on. em 22:14 Ariel Reynolds NP is PHCP. pm1 22:14 Tomás Mcmullen MD is Attending Physician. pm1 23:25 Patient has correct armband on for positive identification. Bed in low position. Call bs2 light in reach. Side rails up X 1. 23:25 No provider procedures requiring assistance completed. Patient did not have IV access bs2 during this emergency room visit. Administered Medications: 23:25 Drug: [place] (HYDROcodone-acetaminophen) 5 mg-325 mg 1 tabs Route: PO; bs2 23:25 Drug: Zofran (Ondansetron) 4 mg Route: PO; bs2 Outcome: 22:48 Discharge ordered by . pm1 23:25 Discharged to home ambulatory, with family. bs2 23:25 Condition: stable 23:25 Discharge instructions given to patient, family, Instructed on discharge instructions, follow up and referral plans. medication usage, Demonstrated understanding of instructions, follow-up care, medications, Prescriptions given X 2. 23:27 Patient left the ED. bs2 Signatures: Zenon Winkler, RN RN Ariel Reynolds, MARLENE WEB APPLICATION DEV SPECIALIST pm1 Marcie Dickey ag3 Silvia Okeefe bs2
--- NOTE | 2021-05-29 22:49 | EDPHYS ---
Physician Documentation [facility] Name: Rachel Valerio Age: 25 yrs Sex: Female : 1995 Arrival Date: 05/29/2021 Time: 21:46 Bed 6 Private MD: ED Physician Tomás Mcmullen HPI: 05/29 23:25 This 25 yrs old Female presents to ER via Ambulatory with complaints of Ear pm1 Pain. 23:25 The patient presents with pain. The complaints affect the right ear and left ear. pm1 Onset: The symptoms/episode began/occurred yesterday. Modifying factors: The symptoms are alleviated by nothing, the symptoms are aggravated by nothing. Associated signs and symptoms: Pertinent negatives: fever, nausea, vomiting. Severity of symptoms: in the emergency department the symptoms are worse. The patient has not experienced similar symptoms in the past. The patient has been recently seen at the [facility] Emergency Department, yesterday, for similar complaints. Patient presented to the ER yesterday with complaints of left ear pain. Patient diagnosed with left AOM. Patient reports left ear pain is worse and right ear pain is present now. [employer]: 22:03 LMP 05/26/2021 em Historical: - Allergies: 22:03 No Known Allergies; em - PMHx: 22:03 Ovarian cyst; em - PSHx: 22:03 None; em - Immunization history:: Adult Immunizations up to date. - Social history:: Smoking status: Patient denies any tobacco usage or history of. ROS: 23:25 Constitutional: Negative for fever, chills, and weight loss. pm1 23:25 Cardiovascular: Negative for chest pain, palpitations, and edema, Respiratory: Negative for shortness of breath, cough, wheezing, and pleuritic chest pain, Abdomen/GI: Negative for abdominal pain, nausea, vomiting, diarrhea, and constipation. 23:25 ENT: Positive for ear pain, Negative for drainage from ear(s), sore throat, difficulty swallowing, difficulty handling secretions. 23:25 Neck: Positive for swollen nodes, of the left side of neck. 23:25 All other systems are negative. Exam: 23:25 Constitutional: This is a well developed, well nourished patient who is awake, alert, pm1 and in no acute distress. Head/Face: Normocephalic, atraumatic. 23:25 Skin: Warm, dry with normal turgor. Normal color with no rashes, no lesions, and no evidence of cellulitis. MS/ Extremity: Pulses equal, no cyanosis. Neurovascular intact. Full, normal range of motion. 23:25 Eyes: Exam is negative for acute changes, Extraocular movements: intact throughout, Conjunctiva: no acute changes. 23:25 ENT: External ear(s): are unremarkable, Ear canal(s): swelling, of the right canal, of the left canal, worse on left side, TM's: no acute changes, to right side. Unable to visualize left TM, Nose: no acute changes, Mouth: Lips: normal, Oral mucosa: normal, pink and intact, moist. 23:25 Neck: ROM/movement: is normal, is supple, Lymph nodes: left cervical chain lymphadenopathy. 23:25 Cardiovascular: Exam negative for acute changes, Rate: normal, Rhythm: regular, Pulses: no pulse deficits are appreciated. 23:25 Respiratory: Exam negative for acute changes, respiratory distress, shortness of breath. 23:25 Neuro: Exam negative for acute changes, Orientation: is normal, Mentation: is normal, Motor: is normal, moves all fours, Gait: is steady, at a normal pace, without difficulty. Vital Signs: 22:02 BP 115 / 72; Pulse 82; Resp 18; Temp 98.5; Pulse Ox 98% on R/A; Weight 104.33 kg; em Height 5 ft. 7 in. (170.18 cm); 22:02 Body Mass Index 36.02 (104.33 kg, 170.18 cm) em MDM: 22:40 Patient medically screened. pm1 22:47 Data reviewed: vital signs. Data interpreted: Pulse oximetry: on room air is 98 %. pm1 Interpretation: normal. 22:47 ED course: ear wick placed in left ear canal. pm1 22:55 ED course: PMPaware reviewed. pm1 Administered Medications: 23:25 Drug: [place] (HYDROcodone-acetaminophen) 5 mg-325 mg 1 tabs Route: PO; bs2 23:25 Drug: Zofran (Ondansetron) 4 mg Route: PO; bs2 Disposition: 05/30 03:43 Co-signature as Attending Physician, Tomás Mcmullen MD. pkl Disposition Summary: 05/29/21 22:48 Discharge Ordered Location: Home pm1 Problem: new pm1 Symptoms: have improved pm1 Condition: Stable pm1 Diagnosis - Unspecified otitis externa, left ear pm1 - Unspecified otitis externa, right ear pm1 Followup: pm1 - With: Emergency Department - When: As needed - Reason: Worsening of condition Followup: pm1 - With: Private Physician - When: 2 - 3 days - Reason: Recheck today's complaints, Continuance of care, Re-evaluation by your physician Discharge Instructions: - Discharge Summary Sheet pm1 - Ear Drops, Adult pm1 - Otitis Externa pm1 Forms: - Medication Reconciliation Form pm1 - Thank You Letter pm1 - Antibiotic Education pm1 - Prescription Opioid Use pm1 Prescriptions: - Hydrocortisone/neomycin/polymyxin otic - apply 4 drop by OTIC route every 6 hours for 10 days To both ears; 10 pm1 milliliter; Refills: 0, Product Selection Permitted - Tramadol 50 mg Oral Tablet - take 1 tablet by ORAL route every 8 hours as needed; 12 tablet; Refills: 0, pm1 Product Selection Permitted Signatures: Tomás Mcmullen MD MD pkZenon Whitfield, RN RN Ariel Lopez, MARLENE BLANK DRILLER pm1 Silvia Okeefe bs2
[2021-05-29 23:36] VITALS: BP 115/72; TEMP 98.5; O2SAT 98
[2021-05-29] MEDS ORDERED: HYDROCODONE/APAP 5/325 MG TAB ONE (23:40)
[2021-05-29] MEDS ORDERED: ONDANSETRON 4 MG (ODT) TAB ONE (23:41)
== END 2021-05-29 23:27 | disposition home or self-care (01) ==
LOC: ER 21:43
DX: H60.93 Unspecified otitis externa, bilateral (principal)
CPT/HCPCS: 99283

== ENCOUNTER → 2022-11-30 | Day surgery (SDC) | payer OTHER ==
--- NOTE | 2022-11-30 11:47 | RAD REPORT ---
EXAM DESCRIPTION: US - Breast Core BX w/US Guidance - 11/30/2022 10:36 am CLINICAL HISTORY: N63.10 COMPARISON: Breast ultrasound 11/15/2022 TECHNIQUE: The patient presents for ultrasound-guided biopsy of a previously detailed 4 centimeter r ight breast mass. The ultrasound-guided core biopsy procedure, risks and alternatives were discussed with the patient i n detail. After answering all questions, both oral and written consent were obtained. Time out proced ure was performed. The patient had no contraindicated allergy or medication history. Preliminary imaging identified the 4.6 centimeter macrolobulated hypoechoic breast mass. The right br east was prepped and draped in the usual sterile fashion. From a(n) medial approach, skin and deeper tissues were anesthetized with 1% lidocaine. Under direct sonographic visualization a 14 gauge vacuum assisted core biopsy needle was advanced and placed at the margin of the mass. There were a total of 2 core biopsies obtained under direct sonographic guidance. There was change in internal echogenicit y indicating the biopsy needle traversed the mass. At the conclusion of the procedure a localization clip was placed under sonographic guidance. Post biopsy imaging showed no hematoma or measurable bleeding within the breast. Hemostasis was obtai mario at the skin site with a sterile bandage placed. Post procedure care and precaution instructions were given to the patient. IMPRESSION: 1. Ultrasound-guided core biopsy was performed of the right breast mass. All obtained ma terial was given to pathology for histologic assessment. 2. Post biopsy localization clip was placed under ultrasound guidance.
== END ==
LOC: DS 08:46
PROVIDERS: ATTEND Nurse Practitioner Gerontology
DX: N63.10 Unspecified lump in the right breast, unspecified quadrant (principal)
CPT/HCPCS: 19083; 88305